=== PATIENT | male | born 1985 | race Caucasian/White ===

== ENCOUNTER 2019-10-28 02:29 | Emergency (ER) | payer OTHER ==
[~2019-10-28] VITALS: Ht 188 cm; Wt 72.6 kg
[2019-10-28 03:13] LABS: ABSOLUTE NEUTROPHILS 4.5 thou/uL (1.4-8.2); BASOPHILS 0.6 % (0.0-2.0); EOSINOPHILS 4.7 % (0.0-3.0); HEMATOCRIT 42.9 % (42.0-52.0); HEMOGLOBIN 14.6 gm/dL (14.0-18.0); LYMPHOCYTES 19.6 % (24.0-44.0); MCH 31.7 pg (26.0-34.0); MCHC 34.1 g/dL (28.0-37.0); MCV 93.1 fL (80.0-100.0); MONOCYTES 4.8 % (1.0-8.0); PLATELET COUNT 128 thou/uL (150-400); POLYS 70.3 % (36.0-66.0); RBC 4.61 mil/uL (4.50-6.00); RDW 13.7 % (10.5-14.5); WBC 6.4 thou/uL (4.0-11.0)
[2019-10-28 03:25] LABS: CALCIUM 8.7 mg/dL (8.5-10.1); CREATININE 0.9 mg/dL (0.7-1.3)
[2019-10-28 03:33] LABS: ALBUMIN 3.6 g/dL (3.4-5.0); DIRECT BILIRUBIN 0.2 mg/dL (<0.1-0.2); TOTAL BILIRUBIN 0.9 mg/dL (0.2-1.0); TOTAL PROTEIN 6.5 g/dL (6.4-8.2)
[2019-10-28] MEDS ORDERED: BUPROPION XL300 MG (04:09)
[2019-10-28] MEDS ORDERED: ONDANSETRON ODT4 MG (04:09)
[2019-10-28 06:59] VITALS: BP 132/64
--- NOTE | 2019-10-28 09:23 | EKG ---
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: [facility] : 1985 Requested By: Malick Eaton Order Number: [id number] MD: Greg Sena Measurements Intervals [place] Rate: 89 P: 43 LA: 138 QRS: 111 QRSD: 97 T: 66 QT: 361 QTc: 440 Interpretive Statements Sinus rhythm Right axis deviation Baseline wander in lead(s) V5,V6 No previous ECG available for comparison Electronically Signed On 10-28-2019 9:23:14 CDT by Greg Sena [email or web address] <ELECTRONICALLY SIGNED> By: Greg Sena MD, [facility] 10/28/19 0923 [id number] Greg Sena MD, [facility] /EPI
== END 2019-10-28 06:40 | disposition home or self-care (01) ==
LOC: ER 02:29
PROVIDERS: Emergency Medicine
DX: F10.10 Alcohol abuse, uncomplicated (principal); R41.0 Disorientation, unspecified; F12.90 Cannabis use, unspecified, uncomplicated; Y90.9 Presence of alcohol in blood, level not specified